=== PATIENT | male | born 1965 | race Caucasian/White ===

== ENCOUNTER 2019-09-21 20:26 | Emergency (ER) | payer SELFPAY ==
[~2019-09-21] VITALS: Ht 165.1 cm; Wt 68.0 kg
[2019-09-21 20:35] VITALS: Ht 165.1 cm; Wt 68.0 kg
[2019-09-21] MEDS ORDERED: PLAVIX75 MG PO (20:38)
[2019-09-21] MEDS ORDERED: SUBOXONE 2 MG-01 TAB SL (20:38)
[2019-09-21 21:01] LABS: BASOPHILS 0.2 % (0-2); EOSINOPHILS 0.2 % (0-7); HEMATOCRIT 47.9 % (42.0-54.0); HEMOGLOBIN 16.3 g/dL (13.5-17.5); IMMATURE GRANULOCYTES 0.2 % (0-5); LYMPHOCYTES 15.7 % (15-50); MCV 91.2 fL (80.0-100.0); MONOCYTES 7.1 % (2-11); NEUTROPHILS 76.6 % (40-80); PLATELET COUNT 271 10x3/uL (130-400); RBC 5.25 10x6/uL (4.20-6.10); RDW 13.7 % (11.5-14.5)
[2019-09-21 21:10] LABS: APTT 28.8 SECONDS (22.8-39.4); INR 0.94 (0.85-1.17); PROTIME 12.5 SECONDS (11.6-15.0)
[2019-09-21 21:12] LABS: CALC OSMOLALITY 271 mosm/kg (275-300); CALCIUM 8.6 mg/dL (8.5-10.1); CARBON DIOXIDE 28.2 mmol/L (21.0-32.0); CHLORIDE - SERUM 100 mmol/L (98-107); CREATININE - SERUM 1.3 mg/dL (0.6-1.3); GLUCOSE 123 mg/dL (74-106); POTASSIUM - SERUM 4.2 mmol/L (3.5-5.1); SODIUM 135 mmol/L (136-145); UREA NITROGEN 16 mg/dL (7-18); eGFR NON AFRICAN AMERICAN 61 mL/min (90-120)
[2019-09-21 21:30] LABS: ALBUMIN 3.5 g/dL (3.4-5.0); ALKALINE PHOSPHATASE 118 U/L (30-120); ALT (SGPT) 39 U/L (10-68); BILIRUBIN - TOTAL 0.22 mg/dL (0.2-1.3); CKMB 2.3 U/L (0.0-3.6); CREATINE KINASE 360 UL (21-232); PRO BNP 236 pg/mL (0-125); PROTEIN - SERUM 8.8 g/dL (6.4-8.2); TROPONIN-I < 0.017 ng/mL (0.000-0.060)
[2019-09-21 21:33] LABS: GLUCOSE NEGATIVE (NEGATIVE); KETONE NEGATIVE (NEGATIVE); NITRITE NEGATIVE (NEGATIVE); SPECIFIC GRAVITY 1.015 (1.005-1.020); UROBILINOGEN NORMAL (NORMAL)
[2019-09-21 21:34] LABS: BILIRUBIN NEGATIVE (NEGATIVE)
[2019-09-21 21:43] LABS: UDS - AMPHET POSITIVE QUAL (NEGATIVE); UDS - BARB NEGATIVE QUAL (NEGATIVE); UDS - BENZO NEGATIVE QUAL (NEGATIVE); UDS - COCAINE NEGATIVE QUAL (NEGATIVE); UDS - OPIATE NEGATIVE QUAL (NEGATIVE); UDS - PCP NEGATIVE QUAL (NEGATIVE); UDS - THC POSITIVE QUAL (NEGATIVE)
[2019-09-21] MEDS ORDERED: LIBRIUM25 MG PO (23:11)
[2019-09-21 23:25] VITALS: BP 168/91
[2019-09-22] MEDS ORDERED: BUPRENORPHIN-N1 EACH SL (21:09)
== END 2019-09-21 23:28 | disposition home or self-care (01) ==
LOC: D.ER 20:26
PROVIDERS: Emergency Medicine
DX: F11.23 Opioid dependence with withdrawal (principal); F15.10 Other stimulant abuse, uncomplicated

== ENCOUNTER 2019-09-22 14:22 | Inpatient (IN) | payer MEDICAID ==
[~2019-09-22] VITALS: Ht 165.1 cm; Wt 68.2 kg
[~2019-09-22 14:22] MED LIST: LIBRIUM25 MG PO; PLAVIX75 MG PO; SUBOXONE 2 MG-01 TAB SL
--- NOTE | 2019-09-22 15:18 | NUR ---
PT TO CT
[2019-09-22 15:36] LABS: HEMATOCRIT 44.2 % (42.0-54.0); HEMOGLOBIN 14.6 g/dL (13.5-17.5); LYMPHOCYTES 9.6 % (15-50); MCH 29.2 pg (26.0-34.0); MEAN PLATELET VOLUME 8.8 fL (7.4-10.4); NEUTROPHILS 84.5 % (40-80); PLATELET COUNT 285 10x3/uL (130-400); RDW 13.1 % (11.5-14.5); WBC 10.3 10x3/uL (4.8-10.8)
[2019-09-22 15:41] LABS: APTT 28.1 SECONDS (22.8-39.4); CALC OSMOLALITY 265 mosm/kg (275-300); CALCIUM 8.5 mg/dL (8.5-10.1); CHLORIDE - SERUM 98 mmol/L (98-107); GLUCOSE 107 mg/dL (74-106); INR 0.94 (0.85-1.17); POTASSIUM - SERUM 3.9 mmol/L (3.5-5.1); PROTIME 12.6 SECONDS (11.6-15.0); SODIUM 133 mmol/L (136-145); UREA NITROGEN 12 mg/dL (7-18); eGFR NON AFRICAN AMERICAN 83 mL/min (90-120)
[2019-09-22 15:48] LABS: MCV 88.4 fL (80.0-100.0)
[2019-09-22 15:56] LABS: ALBUMIN 3.4 g/dL (3.4-5.0); ALKALINE PHOSPHATASE 99 U/L (30-120); ALT (SGPT) 38 U/L (10-68); BILIRUBIN - TOTAL 0.35 mg/dL (0.2-1.3); CKMB 0.9 U/L (0.0-3.6); MAGNESIUM - SERUM 1.6 mg/dL (1.8-2.4); PROTEIN - SERUM 8.3 g/dL (6.4-8.2); THYROID STIMULATING HORMONE 0.67 uIU/mL (0.36-3.74)
[2019-09-22 15:57] LABS: CREATINE KINASE 260 UL (21-232); TROPONIN-I < 0.017 ng/mL (0.000-0.060)
[2019-09-22 16:06] VITALS: BP 197/82
--- NOTE | 2019-09-22 16:24 | NUR ---
PLACED COLD WASH CLOTHS ON PT FOREHEAD, NECK, LISSA ARMPITS, LISSA FEET
[2019-09-22 17:03] LABS: BILIRUBIN NEGATIVE (NEGATIVE); GLUCOSE NEGATIVE (NEGATIVE); KETONE NEGATIVE (NEGATIVE); NITRITE NEGATIVE (NEGATIVE); UROBILINOGEN NORMAL (NORMAL)
[2019-09-22 17:45] LABS: UDS - AMPHET POSITIVE QUAL (NEGATIVE); UDS - BARB NEGATIVE QUAL (NEGATIVE); UDS - BENZO POSITIVE QUAL (NEGATIVE); UDS - COCAINE NEGATIVE QUAL (NEGATIVE); UDS - OPIATE NEGATIVE QUAL (NEGATIVE); UDS - PCP NEGATIVE QUAL (NEGATIVE); UDS - THC POSITIVE QUAL (NEGATIVE)
[2019-09-22 18:54] VITALS: BP 160/72
[2019-09-22] MEDS ORDERED: BUPRENORPHIN-N1 EACH SL (21:09)
--- NOTE | 2019-09-22 21:15 | NUR ---
PT BROUGHT TO FLOOR VIA STRETCHER, TRANSFERED SELF TO BED WITHOUT DIFFICULTY. PT MOANING STATES PAIN IN BACK AND LEGS 01/08. PRODUCTIVE COUGH, STATES YELLOW/WHITE SPUTUM. LUNGS SOUNDS DIMINISHED BILAT. IV RIGHT FA INFUSING NS @ 125, IV LEFT AC SL. DROPLET PRECAUTIONS IN PLACE FOR FLU. PT REQUESTED AND GIVEN SANDWICH TRAY AND MILK. VSS. CALLED AND SPOKE WITH DIANE GREGORY APN. ORDERS RECIEVED FOR MORPHINE 2MG Q4PRN. GAVE MORPHINE ORDERED. DENIES OTHER NEEDS. CL IN REACH, WILL CTM
[2019-09-22 21:46] VITALS: BP 132/60; Ht 165.1 cm; Wt 68.2 kg
[2019-09-23 00:08] VITALS: BP 132/60
--- NOTE | 2019-09-23 04:23 | NUR ---
I have reviewed this patient and I concur with the Shift Assessment completed by the Licensed Practical Nurse today this shift.
[2019-09-23 05:10] LABS: HEMATOCRIT 35.8 % (42.0-54.0); HEMOGLOBIN 11.9 g/dL (13.5-17.5); LYMPHOCYTES 16.5 % (15-50); MCH 29.7 pg (26.0-34.0); MCHC 33.2 g/dL (31.0-37.0); MCV 89.3 fL (80.0-100.0); MEAN PLATELET VOLUME 8.7 fL (7.4-10.4); NEUTROPHILS 77.5 % (40-80); RBC 4.01 10x6/uL (4.20-6.10); WBC 8.5 10x3/uL (4.8-10.8)
[2019-09-23 05:18] LABS: PLATELET COUNT 222 10x3/uL (130-400)
[2019-09-23 05:24] LABS: ALKALINE PHOSPHATASE 72 U/L (30-120); BILIRUBIN - TOTAL 0.19 mg/dL (0.2-1.3); CALC OSMOLALITY 272 mosm/kg (275-300); CALCIUM 7.1 mg/dL (8.5-10.1); CARBON DIOXIDE 25.7 mmol/L (21.0-32.0); CHLORIDE - SERUM 103 mmol/L (98-107); GLUCOSE 91 mg/dL (74-106); MAGNESIUM - SERUM 1.5 mg/dL (1.8-2.4); PHOSPHOROUS 3.2 mg/dL (2.5-4.9); POTASSIUM - SERUM 3.8 mmol/L (3.5-5.1); SODIUM 136 mmol/L (136-145); UREA NITROGEN 14 mg/dL (7-18); eGFR NON AFRICAN AMERICAN 83 mL/min (90-120)
[2019-09-23 05:30] VITALS: BP 133/65
[2019-09-23 05:40] LABS: ALBUMIN 2.3 g/dL (3.4-5.0); ALT (SGPT) 22 U/L (10-68); PROTEIN - SERUM 6.1 g/dL (6.4-8.2)
--- NOTE | 2019-09-23 07:20 | NUR ---
RECIEVE REPORT. SITTING UP IN BED YELLING OUT DUE TO IV PUMP BEEPING. FLUSH IV LINE. DENIES ANY OTHER NEEDS AT THIS TIME. CONTINUE PLAN OF CARE AND SAFETY PRECAUTIONS.
[2019-09-23 09:05] VITALS: BP 131/62
--- NOTE | 2019-09-23 11:57 | MORECARE ---
CASE MANAGEMENT DISCHARGE SUMMARY PATIENT: ABI TALLEY UNIT: [id number] ADM DATE: 09/22/19 AGE: 53 : 63 SEX: M ROOM/BED: D.0406 AUTHOR: BETSY,DOC PHYSICIAN: REFERRING PHYSICIAN: GIFTY NEWTON MD DATE OF SERVICE: 09/23/19 Discharge Plan Patient Name: ABI TALLEY Facility: [facility]:[place] : 1965 Planned Disposition: Home Anticipated Discharge Date: Discharge Date: Expected LOS: Initial Reviewer: [email or web address] Initial Review Date: 09/23/2019 Generated: 09/23/19 12:57 pm Comments DCP- Discharge Planning Updated by [email or web address]: Ericka Alvarez on 09/23/19 10:[address] Patient Name: ABI TALLEY Admission Status: ER Accout number: [id number] Admission Date: 09-22-2019 : 1965 Admission Diagnosis: Attending: GIFTY NEWTON Current LOS: 1 Anticipated DC Date: Planned Disposition: Home Primary Insurance: MEDICAID [place]END[place] Discharge Planning Comments: CM met with patient to complete initial dc planning assessment. CM educated patient on the CM role and verbal consent given by patient to complete assessment. Patient lives at home with his adult daughter, address verified on face sheet. At discharge patient plans to return and feels this is a safe discharge. CM discussed availability of home health, rehab services, and medical equipment. Patient denied known discharge needs at this time. He has "Obamacare" from [place]. I called Broderick with [facility] [employer] and they will get him signed up for [place] Medicaid. CM will continue to follow and will assist as needed with dc plans/needs. Media Operator: Ericka Alvarez DCPIA - Discharge Planning Initial Assessment Updated by [email or web address]: Ericka Alvarez on 09/23/19 11:53 am * Is the patient Alert and Oriented? Yes * How many steps to enter\\exit or inside your home? 0/0 * PCP None * Pharmacy [facility] in [place] * Preadmission Environment Home with Family * ADLs Independent * Equipment None * List name and contact numbers for known caregivers / representatives who currently or will assist patient after discharge: Moises Talley - brother - [phone] Toshia Mccarty sister - [phone] * Verbal permission to speak to the caregivers and representatives has been obtained from the patient. Yes * Community resources currently utilized None * Additional services required to return to the preadmission environment? No * Can the patient safely return to the preadmission environment? Yes * Has this patient been hospitalized within the prior 30 days at any hospital? No Patient Name: ABI TALLEY Page [id number] at 1157 All edits/amendments must be made on the electronic document DICTATION DATE: 09/23/19 1157 RESIDENTIAL LAWN SPECIALIST: ALICJA 09/23/19 1157 RPT#: [id number] DC DATE: STATUS: ADM IN [facility] [address] [place] [address] END OF REPORT
[2019-09-23 12:46] VITALS: BP 133/58
[2019-09-23 20:52] VITALS: BP 130/68
[2019-09-24 06:10] LABS: HEMOGLOBIN 12.6 g/dL (13.5-17.5); LYMPHOCYTES 28.1 % (15-50); MCH 29.4 pg (26.0-34.0); MCHC 33.2 g/dL (31.0-37.0); MCV 88.8 fL (80.0-100.0); MEAN PLATELET VOLUME 8.9 fL (7.4-10.4); NEUTROPHILS 64.3 % (40-80); PLATELET COUNT 214 10x3/uL (130-400); RBC 4.28 10x6/uL (4.20-6.10); RDW 13.2 % (11.5-14.5)
[2019-09-24 06:17] LABS: WBC 6.2 10x3/uL (4.8-10.8)
[2019-09-24 08:00] VITALS: BP 146/84
--- NOTE | 2019-09-24 11:00 | NUR ---
CALLED TO PATIENTS ROOM. PATIENT STATES THAT HE IS HAVING BACK PAIN AT A "10." PATIENT REQUESTED MORPHINE. RE-ENTERED ROOM TO MEDICATE. PATIENT LAYING IN BED ON BACK WITH EYES CLOSED AND SNORING LOUDLY. PATIENT AROUSES TO VOICE AND STATES HE IS STILL HURTING AT A 10. MEDICATED PER AUG W8ITH MORPHINE 2 MG IV. PATIENT TOLERATED WELL. WILL CONTINUE TO MONITOR. SR UP X 2 BED IN LOW POSITION AND CALL LIGHT IN REACH.
[2019-09-24 11:30] VITALS: BP 137/80
--- NOTE | 2019-09-24 13:44 | NUR ---
PATIENT STABLE AND VSS. PATIENT LAYING IN BED ON BACK WITH EYES CLOSED AND BREATHING EVENLY. SR UP X 2 BED IN LOW POSITION AND CALL LIGHT IN REACH.
--- NOTE | 2019-09-24 14:00 | NUR ---
PER PATIENT REQUEST,MEDICATED FOR PAIN PER EMAR ORDER MORPHINE 2 MG IV. PATIENT TOLERATED WELL. VSS. WILL CONTINUE WITH PLAN OF CARE. SR UPX 2 BED IN LOW POSITION AND CALL LIGHT IN REACH.
[2019-09-24 16:30] VITALS: BP 138/86
--- NOTE | 2019-09-24 19:33 | NUR ---
EVENING ROUNDS COMPLETE. PT LAYING IN BED. NO SIGNS OF DISTRESS. PT DENIES ANY NEEDS AT THIS TIME. C/O PAIN 04/10, WOULD LIKE HIS PRN MORPHINE. EXPLAINED TO PT THAT PAIN MEDICATION IS NOT DUE AT THIS TIME. OFFERED PT COLD OR HOT PACK, PT DENIES THE NEED FOR ONE. CL IN REACH, BED IN LOWEST POSITION.
--- NOTE | 2019-09-24 19:55 | NUR ---
NOTIFIED BY INFECTION CONTROL PT COVID-19 TEST WAS NEGATIVE. PT TO BE TRANSFERED TO ANOTHER ROOM ON THE FLOOR (2109) AND TO REMAIN IN DROPLET ISOLATION FOR POSITIVE FLU A TEST.
--- NOTE | 2019-09-24 20:00 | NUR ---
PATIENT RESTING IN BED WITH EYES OPEN. NO S/S OF DISTRESS. PATIENT COMPLAINS OF THE PUMP BEEPING AND THAT HE WAS "GOING TO BLOW THE FUCKING THING UP." PATIENT INSTRUCTED TO CALM DOWN, AND I WOULD TRY TO FIX IT. PATIENT STILL AGITATED. PATIENT HAS IV IN BOTH THE LEFT AC AND RIGHT FOREARM. BOTH IV ARE PATENT WITHOUT REDNESS, SWELLING, OR TENDERNESS. LEFT AC NORMAL SALINE @ 75 ML/HR. RIGHT FOREARM IS SALINE LOC. PATIENT IS ON TELEMTRY: 63 [address] CALL LIGHT IN PLACE. WILL CONTINUE TO MONITOR.
[2019-09-24 20:50] VITALS: BP 149/62
[2019-09-25] VITALS: BP 149/78
--- NOTE | 2019-09-25 02:33 | NUR ---
I have reviewed this patient and I concur with the Shift Assessment completed by the Licensed Practical Nurse today this shift.
--- NOTE | 2019-09-25 03:20 | NUR ---
PATIENT LEFT AC IV INFILTRATED AND WAS TAKEN OUT. CATHETER TIP INTACT. IV WAS MOVED TO RIGHT FOREARM. RIGHT FOREARM PATENT WITHOUT REDNESS, SWELLING, OR TENDERNESS. CALL LIGHT IN PLACE. WILL CONTINUE TO MONITOR.
[2019-09-25 04:00] VITALS: BP 191/75
[2019-09-25 05:55] LABS: BASOPHILS 0.6 % (0-2); HEMATOCRIT 40.4 % (42.0-54.0); HEMOGLOBIN 13.2 g/dL (13.5-17.5); IMMATURE GRANULOCYTES 0.2 % (0-5); LYMPHOCYTES 28.7 % (15-50); MCH 29.1 pg (26.0-34.0); MCHC 32.7 g/dL (31.0-37.0); MCV 89.2 fL (80.0-100.0); MEAN PLATELET VOLUME 8.9 fL (7.4-10.4); MONOCYTES 5.9 % (2-11); NEUTROPHILS 59.6 % (40-80); PLATELET COUNT 251 10x3/uL (130-400); RBC 4.53 10x6/uL (4.20-6.10); RDW 13.3 % (11.5-14.5); WBC 5.4 10x3/uL (4.8-10.8)
[2019-09-25 06:29] LABS: CALC OSMOLALITY 283 mosm/kg (275-300); CALCIUM 8.1 mg/dL (8.5-10.1); CARBON DIOXIDE 28.7 mmol/L (21.0-32.0); CHLORIDE - SERUM 105 mmol/L (98-107); CREATININE - SERUM 0.8 mg/dL (0.6-1.3); GLUCOSE 96 mg/dL (74-106); MAGNESIUM - SERUM 1.9 mg/dL (1.8-2.4); PHOSPHOROUS 3.9 mg/dL (2.5-4.9); SODIUM 142 mmol/L (136-145); UREA NITROGEN 14 mg/dL (7-18); eGFR NON AFRICAN AMERICAN > 90 mL/min (90-120)
--- NOTE | 2019-09-25 07:10 | NUR ---
REPORT RECEIVED FROM DAYCARE WORKER AND PATIENT CARE ASSUMED. PATIENT LAYING IN BED ON BACK AWAKE, ALERT AND ORIENTED X 4. PATIENT STATES THAT HE WANTS TO STOP MORPHINE AND HE NEEDS HIS RX FOR SUBOXONE. HES WORRIED ABOUT HIS PAIN AND ADDICTION. WILL CONTACT PROVIDER REGARDING THIS. PATIENT IS STABLE AND VSS. PATIENT DENIES ANY OTHER NEEDS OR PAIN. WILL CONTINUE WITH PLAN OF CARE. SR UP X 2 BED IN LOW POSITION AND CALL LIGHT IN REACH. WILL CONTINUE WITH PLAN OF CARE. SR UP X 2 BED IN LOW POSITION AND CALL LIGHT IN REACH.
--- NOTE | 2019-09-25 10:45 | NUR ---
JUAN EDGAR ON UNIT. NEW ORDER RECEIVED TO DC MORPHINE AND NEW ORDER FOR SUBOXONE.
--- NOTE | 2019-09-25 10:55 | NUR ---
UNABLE TO COLLECT SPUTUM SPECIMEN PATIENT HAVING NON PRODUCTIVE COUGH.
[2019-09-25] MEDS ORDERED: TAMIFLU75 MG PO (11:51)
[2019-09-25] MEDS ORDERED: AZITHROMYCIN500 MG PO (11:52)
[2019-09-25] MEDS ORDERED: OMNICEF300 MG PO (11:53)
--- NOTE | 2019-09-25 11:53 | EC ---
PATIENT:ABI SPEAR DATE OF SERVICE: 09/22/19 SEX: M MEDICAL RECORD: [id number] DATE OF : [birth year] LOCATION:D.M2 D.211 AGE OF PATIENT: 53 ADMISSION DATE: 09/22/19 REFERRING PHYSICIAN: INTERPRETING PHYSICIAN: MIRNA YU MD ECHOCARDIOGRAM REPORT ECHO CHARGES 4 ECHO COMPLETE Date: 09/23/19 CLINICAL DIAGNOSIS: FEVER, COUGH, DRUG ABUSE, TACHYCARDIA, SEPSIS ECHOCARDIOGRAPHIC MEASUREMENTS (adult normal given) AC root (d.<3.7cm) 2.7 cm LV Septum d (<1.2 cm> 1.1 cm Valve Excursion 1.6 cm LV Septum (systole) 1.4 cm Left Atria (s.<4.0cm> 3.3 cm LVPW d(<1.2cm) 1.0 cm RV (d.<2.3cm) 3.0 cm LVPW (sytole) 1.1 cm LV diastole(<5.6CM) 6.0 cm MV E-F(>70mm/sec) cm LV systole 4.7 cm LVOT Diameter 1.6 cm MV exc.(>10mm) cm Est.ejection fraction (50-75%) % DOPPLER: LVIT cm/sec A 76 cm/sec E 85 cm/sec LA cm/sec RVSP 21.7 mmHg LVOT 107 cm/sec AOP1/2T m/s Asc. Ao 155 cm/sec RVOT 76 cm/sec RA cm/sec PA 89 cm/sec AV Gradient Peak 9.6 mmHg AV Mean 5.3 mmHg AV Area 1.6 cm MV Gradient Peak 5.8 mmHg MV Mean 2.6 mmHg MV Area cm COMMENTS: Manager Lvn: Chula RODRIGUEZ Timber Bucker: 3 Dr. Blackmon TAPE# PACS Pericardial Effusion N DATE OF SERVICE: Adequate 2D, color flow imaging, spectral Doppler, and M-Mode. No LVH. LV internal dimension is normal. Wall motion is normal. EF is greater than or equal to 55%. Aortic valve is tricuspid. No evidence of stenosis by Doppler interrogation. Left atrium is normal. Mitral valve shows no prolapse. Trace MR. Right-sided chambers are grossly normal. Trace TR. No evidence of miscellaneous. No evidence of vegetation in all 4 cardiac valves. ECHOCARDIOGRAM REPORT [id number] ABI SPEAR TRANSINT:[id number] Voice Confirmation ID: [id number] DOCUMENT ID: [id number] MIRNA YU MD at 1153 CC: [id number] DICTATION DATE: 09/23/19 135 RETAIL LEASING AGENT: 09/23/19 1404 ADM IN [facility] [address] [place] [address]
--- NOTE | 2019-09-25 17:05 | MORECARE ---
CASE MANAGEMENT DISCHARGE SUMMARY PATIENT: ABI TALLEY UNIT: [id number] ADM DATE: 09/22/19 AGE: 53 : 63 SEX: M ROOM/BED: D.1350 AUTHOR: BETSY,DOC PHYSICIAN: REFERRING PHYSICIAN: GIFTY NEWTON MD DATE OF SERVICE: 09/25/19 Discharge Plan Patient Name: ABI TALLEY Facility: [facility]:[place] : 1965 Planned Disposition: Home Anticipated Discharge Date: 09/25/19 Discharge Date: 09/25/2019 Expected LOS: 3 Initial Reviewer: [email or web address] Initial Review Date: 09/23/2019 Generated: 09/25/19 6:05 pm DCP- Discharge Planning Updated by [email or web address]: Ericka Alvarez on 09/23/19 10:[address] Patient Name: ABI TALLEY Admission Status: ER Accout number: [id number] Admission Date: 09-22-2019 : 1965 Admission Diagnosis: Attending: GIFTY NEWTON Current LOS: 1 Anticipated DC Date: Planned Disposition: Home Primary Insurance: MEDICAID [place] PENDING Discharge Planning Comments: CM met with patient to complete initial dc planning assessment. CM educated patient on the CM role and verbal consent given by patient to complete assessment. Patient lives at home with his adult daughter, address verified on face sheet. At discharge patient plans to return and feels this is a safe discharge. CM discussed availability of home health, rehab services, and medical equipment. Patient denied known discharge needs at this time. He has "Obamacare" from [place]. I called Broderick with [facility] [employer] and they will get him signed up for [place] Medicaid. CM will continue to follow and will assist as needed with dc plans/needs. Assembly Repairer: Ericka Alvarez DCPIA - Discharge Planning Initial Assessment Updated by [email or web address]: Ericka Alvarez on 09/23/19 11:53 am * Is the patient Alert and Oriented? Yes * How many steps to enter\\exit or inside your home? 0/0 * PCP None * Pharmacy [facility] in [place] * Preadmission Environment Home with Family * ADLs Independent * Equipment None * List name and contact numbers for known caregivers / representatives who currently or will assist patient after discharge: Moises Talley - brother - [phone] Toshia - sister - [phone] * Verbal permission to speak to the caregivers and representatives has been obtained from the patient. Yes * Community resources currently utilized None * Additional services required to return to the preadmission environment? No * Can the patient safely return to the preadmission environment? Yes * Has this patient been hospitalized within the prior 30 days at any hospital? No Last DP export: 09/23/19 10:57 a Patient Name: ABI TALLEY Page [id number] at 1705 All edits/amendments must be made on the electronic document DICTATION DATE: 09/25/191704 DRUM HANDLER: ALICJA 09/25/191704 RPT#: [id number] DC DATE:09/25/19 STATUS: DIS IN [facility] [address] [place] [address] END OF REPORT
== END 2019-09-25 14:17 | disposition home or self-care (01) | DRG 194 ==
LOC: D.ER 14:22 → D.M2 18:18
PROVIDERS: Family Medicine; ADMIT Internal Medicine Nephrology; ATTEND Internal Medicine Nephrology
DX: J09.X1 Influenza due to identified novel influenza A virus with pneumonia (principal); E87.1 Hypo-osmolality and hyponatremia; F17.213 Nicotine dependence, cigarettes, with withdrawal; F15.10 Other stimulant abuse, uncomplicated; I70.203 Unspecified atherosclerosis of native arteries of extremities, bilateral legs; J43.9 Emphysema, unspecified; Z20.828 Contact with and (suspected) exposure to other viral communicable diseases

== ENCOUNTER 2020-02-26 07:24 | Emergency (ER) | payer MEDICAID ==
[~2020-02-26] VITALS: Ht 165.1 cm; Wt 70.5 kg
[~2020-02-26 07:24] MED LIST changes: +AZITHROMYCIN500 MG PO; +BUPRENORPHIN-N1 EACH SL; +OMNICEF300 MG PO; +TAMIFLU75 MG PO
[2020-02-26 07:29] VITALS: Ht 165.1 cm; Wt 70.5 kg
[2020-02-26] MEDS ORDERED: PERMETHRIN60 GM TOPICAL (07:41)
[2020-02-26] MEDS ORDERED: STERAPRED DS 1010 MG PO (07:41)
[2020-02-26 07:52] VITALS: BP 131/77
== END 2020-02-26 07:56 | disposition home or self-care (01) ==
LOC: D.ER 07:24
DX: L25.9 Unspecified contact dermatitis, unspecified cause (principal); I10 Essential (primary) hypertension; Z72.0 Tobacco use